=== PATIENT | female | born 1950 | race Caucasian/White ===

== ENCOUNTER 2017-09-25 00:26 | Emergency (ER) | payer MEDICARE, OTHER ==
[2017-09-25 01:23] LABS: Hematocrit 38.4 % (37.0-47.0); Hemoglobin 12.4 gm/dL (12.5-16.0); Mean Cell Volume 89.5 fl (78-100); Mean Corpuscular Hemoglobin 28.9 pg (27-31); Mean Corpuscular Hgb Conc 32.3 g/dl (32-36); Mean Platelet Volume 10.8 fl (6.0-9.5); Neutrophil # 5.4 K/mm3 (1.3-6.0); Neutrophil % 51.1 % (42-75.0); Platelet Count 255 K/mm3 (150-450); Red Blood Count 4.29 M/mm3 (4.2-5.4); Red Cell Distribution Width 14.1 % (11.5-14.0); White Blood Count 10.6 K/mm3 (4.0-10.5)
[2017-09-25 01:43] LABS: Anion Gap 13.2 mmol/L (6.8-13.8); BUN/Creatinine Ratio 22.3 (9.0-21.6); Blood Urea Nitrogen 29 mg/dL (3-23); Calcium * 8.6 mg/dL (7.9-10.9); Carbon Dioxide 27.9 mmol/L (24-32.6); Chloride 104 mmol/L (97-106); Glucose * 154 mg/dL (70-110); Potassium 4.1 mmol/L (3.4-4.6); Sodium 141 mmol/L (132-142); Troponin I Less than 0.017 ng/ml (0.00-0.10)
[2017-09-25 01:51] LABS: TSH * 0.011 uIU/mL (0.358-3.74)
--- NOTE | 2017-09-25 02:09 | ERNOTE ---
Medical Problem HPI - Narrative Date of Service: 09/25/17 - General Chief Complaint: General Assessment Time Seen by Provider: 09/25/17 00:50 Source: patient Exam Limitations: no limitations - Immun/Allergies/Home Medications Immunizations: IMMUNIZATION HX Immunizations Up to Date Yes History of Influenza Vaccine No Allergies/Adverse Reactions: Allergies Sulfa (Sulfonamide Antibiotics) Allergy (Verified 09/25/17 00:36) acetaminophen [From Lortab] Adverse Reaction (Verified 09/25/17 00:37) fentanyl Adverse Reaction (Verified 09/25/17 00:37) hydrocodone [From Lortab] Adverse Reaction (Verified 09/25/17 00:37) Home Medications: HOME MEDICATIONS Carvedilol [Coreg] 6.25 mg PO BID 09/25/17 [Last Taken Unknown] Celecoxib [Celebrex] 50 mg PO DAILY 09/25/17 [Last Taken Unknown] Lisinopril [Prinivil] 10 mg PO DAILY 09/25/17 [Last Taken 09/24/17 22:00] Methimazole [Tapazole] 2 mg PO DAILY 09/25/17 [Last Taken Unknown] metFORMIN HCL [Metformin HCl] 500 mg PO DAILY 09/25/17 [Last Taken Unknown] - History of Present History Narrative: 67 year old that had the sudden onset of mild chest pressure (that did not radiate), and rapid heart beat two hours prior to being seen in the ED. Nothing increased or decreased the symptoms. No complaints of shortness of breath, fevers, or chills. No previous history of cardiac disease, DVT/PE. Hx of thyroid ablation. Date (Duration): 09/25/17 Time (Timing): 02:46 Timing: gone now Severity: mild Modifying Factors - (Improves): Present: other - nothing Modifying Factors - (Worsens): Present: other - nothing Review of Systems - Review of Systems Constitutional: Present: no symptoms reported EYE: Present: no symptoms reported ENT: Present: no symptoms reported Respiratory: Present: no symptoms reported Cardiology: Present: See HPI Gastrointestinal/Abdominal: Present: no symptoms reported Genitourinary: Present: no symptoms reported Musculoskeletal: Present: no symptoms reported Skin: Present: no symptoms reported Neurological: Present: no symptoms reported Endocrine: Present: See HPI Hematologic/Lymphatic: Present: no symptoms reported Psych: Present: no symptoms reported - Patient's Past Medical History Patient History - Medical: Diabetes Type 2 Insulin Dependent Patient History - Cardiac/Respiratory: Hypertension Patient History - Cancer: No Hx of Cancer Patient History - Surgical Procedures: Appendectomy, Cholecystectomy, T & A Patient History - Other: None - Social History Living Situations: home Abuse History: No History of abuse Psych History: No pertinent hx Smoking Status: Never smoker Alcohol Use: none Drug Use: none - Immunizations Immunizations Up to Date: Yes History of Influenza Vaccine: No Physical Exam - Physical Exam General Appearance: Present: no apparent distress Head Exam: Present: normal inspection Eye Exam: Normal inspection: bilateral Ears, Nose, Throat: Present: normal ENT inspection Neck: Present: normal inspection Respiratory: Present: no respiratory distress Cardiovascular/Chest: Present: regular rate, rhythm Gastrointestinal/Abdominal: Present: nontender, nondistended Back Exam: Present: normal inspection Extremity Exam: Present: normal inspection Neurological Exam: Present: alert, oriented, normal mood/affect Skin Exam: Present: normal color ED Progress - Results and Orders Patient's Lab Results:: I have reviewed the patient's lab results. - Vital Signs Patient's Vital Signs:: I have reviewed the patient's vital signs. Vital Signs: Vital Signs 09/25/17 00:29 Temperature 36.6 C Pulse Rate 104 H Respiratory 18 Rate Blood Pressure 187/99 O2 Sat by Pulse 95 Oximetry - EKG EKG: other EKG read: Interp. by me EKG Comments: sinus tachycardia, rate 103, normal axis - X-Ray X-Ray #1 X-Ray: forearm Interpretation: Interp. by me X-ray Comments: Left mid shaft radius fracture. - CT/Ultrasound CT/Ultrasound Narrative: CT chest- patchy linear and slight groundglass densities probably related to atelectasis and respiratory motion. Minimal inflammatory/atypical infectious process unlikely. No airspace consolidation, pleural effusion or pnuemothroax. - Progress/Reassessment Chief Complaint: General Assessment Progress:: Improved - Progress Note-Subjective: Troponin levels were negative x 2. No chest pain during the ED stay. 09/25/17 06:17 Departure Clinical Impression: Hyperthyroidism, Heart palpitations - Departure Disposition: Home self-care Condition: Good Instructions: Hyperthyroidism, Palpitations, [id number] Print Language: Italian Additional Instructions: Return to the ED as needed. You will also need to have a cardiac stress test done in the near future. You can call the [facility] for an appointment: [phone].
[2017-09-25 07:31] VITALS: BP 169/77
[2017-09-27 09:13] LABS: T3 Total 135 ng/dL (76-181); T4 6.1 mcg/dL (4.5-12.0)
== END 2017-09-25 06:30 | disposition home or self-care (01) ==
LOC: ER 00:26
DX: E05.90 Thyrotoxicosis, unspecified without thyrotoxic crisis or storm (principal); R00.2 Palpitations; I10 Essential (primary) hypertension; E11.9 Type 2 diabetes mellitus without complications